=== PATIENT | female | born 1985 | race African-American/Black ===

== ENCOUNTER 2016-04-27 09:53 | Emergency (ER) | payer MEDICAID ==
[~2016-04-27] VITALS: Ht 154.9 cm; Wt 83.9 kg
[~2016-04-27 09:53] MED LIST: ACETAMINOPHEN-1 EAC1 ORAL; ATARAX25 MG ORAL; BENADRYL50 MG ORAL; CALCIUM500 MG PO; FOLIC ACID0.4 MG PO; KENALOG 0.1% CR15 GM APPLIC; MACROBID100 MG ORAL; MEDROL DOSEPAK4 MG ORAL; NKM; NORCO 5-325 TA1 EACH ORAL; PREDNISONE20 MG ORAL; PRENATAL VITAM1 EAC2 PO
[2016-04-27 10:33] LABS: APPEARANCE,URINE CLEAR; KETONES,URINE NEGATIVE (NEGATIVE); LEUKOCYTE ESTERASE ,URINE NEGATIVE (NEGATIVE); NITRITE,URINE NEGATIVE (NEGATIVE); PH,URINE 8 (4.5-8.0); PROTEIN,URINE NEGATIVE (NEGATIVE); UROBILINOGEN,URINE NORMAL MG/DL (0.0-1.0)
--- NOTE | 2016-04-27 10:47 | Emergency Room Report ---
History of Present Illness General Chief Complaint: Vaginal Source: Patient Present Illness HPI 30 YO F G3A1P2 with last resulting in ectopic that was resolved with ?methotrexate presents with amenorrhea for 2 months assoc with increased nipple ttp, vaginal spotting, abd discomfort on right side raditing to back. Denies assoc fever/chills, dysuria, polyuria, flank pain. Sexually active with 1 partner. Denies ETOH, drug use or other medical problems. Allergies: Coded Allergies: CEPHALEXIN (Unverified Allergy, Severe, 10/19/14) PENICILLINS (Verified Allergy, Intermediate, Hives, 01/01/12) hives Patient History Past Medical History: none Past Surgical History: none Pertinent Family History: none Social History: Denies: alcohol use, drug use, smoking Last Menstrual Period: feb 2016 Now: Yes : 3 Para: 2 Immunizations: UTD Reviewed Nursing Documentation: PMH: Agreed, PSxH: Agreed Nursing Documentation-PMH Past Medical History: No History, Except For Review of Systems All Other Systems: negative except mentioned in HPI Physical Exam Vital Signs Date Time Temp Pulse Resp B/P Pulse Ox O2 Delivery O2 Flow Rate FiO2 04/27/16 10:00 97.9 86 18 109/72 98 Room Air Sp02 EP Interpretation: reviewed, normal General Appearance: normal inspection, well appearing, no apparent distress, alert Head: atraumatic ENT: normal ENT inspection, hearing grossly normal, normal voice Neck: normal inspection, full range of motion, supple, no bony tend Respiratory: normal inspection, lungs clear, normal breath sounds, no respiratory distress, no retraction, no wheezing Cardiovascular #1: regular rate, rhythm, no edema Gastrointestinal: normal inspection, normal bowel sounds, non tender, soft, no guarding, no hernia Genitourinary: no CVA tenderness Musculoskeletal: normal inspection, back normal, normal range of motion, Carmen' s Sign negative Neurologic: normal inspection, alert, oriented x3, responsive, gallery or museum attendant III-XII nml as tested, motor strength/tone normal, speech normal Psychiatric: normal inspection, judgement/insight normal, mood/affect normal Skin: normal inspection, normal color, no rash Medical Decision Making Diagnostic Impression: Primary Impression: Vaginal bleeding ER Course 30 YO F with +IUP on bedside sono. Urine preg +. UA negative for infection Official sono: ~8 weeks . IUP. FHR 144. No other abnormalities noted by [facility] with strong recommendation for [employer] followup Last Vital Signs Date Time Temp Pulse Resp B/P Pulse Ox O2 Delivery O2 Flow Rate FiO2 04/27/16 10:00 97.9 86 18 109/72 98 Room Air Status: improved Disposition: HOME, SELF-CARE Referrals: NOT CHOSEN IPA/,REFERRING (PCP) ANTOINETTE CISSE M.D. Apr 27, 2016 10:47
[2016-04-27 11:45] VITALS: BP 105/72
--- NOTE | 2016-04-27 12:15 | Diagnostic Imaging Report ---
Indication: PAIN, patient Technique: Transabdominal and transvaginal images Comparison: 07/31/2013 Findings: Uterus measures 10.5 cm length by 7.7 cm AP. Within the imaging, there is a gestational sac containing a pole with a crown-rump length of 20 mm, corresponding to an estimate a gestational age of 8 weeks 6 days. Yolk sac and amnion are also demonstrated. No subchorionic hemorrhage is evident. Right ovary measures 2.4 cm length. Left ovary measures 3.5 cm length. No adnexal mass demonstrated. No free cul-de-sac fluid. Impression: 8 weeks 6 days, by crown-rump length measurement, single live intrauterine . No unusual features
== END 2016-04-27 11:46 | disposition home or self-care (01) ==
LOC: EMR 10:15
DX: N93.9 Abnormal uterine and vaginal bleeding, unspecified (principal); O26.91 Pregnancy related conditions, unspecified, first trimester; Z3A.08 8 weeks gestation of pregnancy; R10.9 Unspecified abdominal pain; M54.9 Dorsalgia, unspecified; Z88.0 Allergy status to penicillin
CPT/HCPCS: 76801; 76830; 81003; 81025; 99284